=== PATIENT | female | born 1995 ===

== ENCOUNTER 2019-02-05 06:49 | Emergency (ER) | payer OTHER ==
[~2019-02-05] VITALS: Ht 165.1 cm; Wt 79.8 kg
[2019-02-05] MEDS ORDERED: PRENATAL 19 TA1 EACH (07:26)
[2019-02-05] MEDS ORDERED: SYNTHROID50 MCG (07:26)
[2019-02-05] MEDS ORDERED: DUI500 PO (11:55)
[2019-02-05] MEDS ORDERED: MUCINEX DM ER1 EAC1 PO (11:55)
== END 2019-02-05 12:09 | disposition home or self-care (01) ==
LOC: ER 06:49
DX: N39.0 Urinary tract infection, site not specified (principal); J06.9 Acute upper respiratory infection, unspecified; B34.9 Viral infection, unspecified

== ENCOUNTER 2019-03-28 14:10 | Outpatient (CLI) | payer OTHER ==
[~2019-03-28 14:10] MED LIST: DUI500 PO; MUCINEX DM ER1 EAC1 PO; PRENATAL 19 TA1 EACH; SYNTHROID50 MCG
== END 2019-03-28 21:48 | disposition home or self-care (01) ==
LOC: OBS/DEL 14:10
DX: O26.893 Other specified pregnancy related conditions, third trimester (principal); R10.2 Pelvic and perineal pain; Z34.03 Encounter for supervision of normal first pregnancy, third trimester

== ENCOUNTER 2019-04-09 17:21 | Outpatient (CLI) | payer OTHER | END 2019-04-09 18:23 | disposition home or self-care (01) | LOC: OBS/DEL 17:21 | DX: O23.43 Unspecified infection of urinary tract in pregnancy, third trimester (principal); Z34.03 Encounter for supervision of normal first pregnancy, third trimester ==

== ENCOUNTER 2019-05-21 11:10 | Outpatient (CLI) | payer OTHER | END 2019-05-21 20:55 | disposition home or self-care (01) | LOC: OBS/DEL 11:10 | DX: O13.3 Gestational [pregnancy-induced] hypertension without significant proteinuria, third trimester (principal); Z34.03 Encounter for supervision of normal first pregnancy, third trimester ==

== ENCOUNTER 2019-05-22 15:30 | Inpatient (IN) | payer OTHER ==
[~2019-05-22] VITALS: Ht 167.6 cm; Wt 87.1 kg
[2019-05-27] MEDS ORDERED: LEVOTHYROXINE25 MCG PO (12:05)
[2019-05-27] MEDS ORDERED: PRENATAL TABLE1 EACH PO (12:06)
[2019-06-04] MEDS ORDERED: PRENATAL CAPLE1 EAC1 PO (08:54)
== END 2019-06-07 14:20 | DRG 788 ==
LOC: O/R 15:30 → OB/GYN 06-04 07:29 → LDR 06-04 07:29 → OB/GYN 06-04 19:53
PROVIDERS: ADMIT Obstetrics & Gynecology
PROC: 3E033VJ Introduction of Other Hormone into Peripheral Vein, Percutaneous Approach (ICD-10-PCS; 2019-06-04)
PROC: 4A033R1 Measurement of Arterial Saturation, Peripheral, Percutaneous Approach (ICD-10-PCS; 2019-06-04)
PROC: 4A1HXCZ Monitoring of Products of Conception, Cardiac Rate, External Approach (ICD-10-PCS; 2019-06-04)
PROC: 10D00Z1 Extraction of Products of Conception, Low, Open Approach (ICD-10-PCS; principal; 2019-06-04 17:00)
DX: O61.0 Failed medical induction of labor (principal); O62.1 Secondary uterine inertia; Z3A.39 39 weeks gestation of pregnancy; Z37.0 Single live birth

== ENCOUNTER 2019-05-27 11:51 | Outpatient (CLI) | payer OTHER ==
[2019-05-27] MEDS ORDERED: LEVOTHYROXINE25 MCG PO (12:05)
[2019-05-27] MEDS ORDERED: PRENATAL TABLE1 EACH PO (12:06)
== END 2019-05-28 12:59 | disposition home or self-care (01) ==
LOC: OBS/DEL 11:51
DX: O26.843 Uterine size-date discrepancy, third trimester (principal); O13.3 Gestational [pregnancy-induced] hypertension without significant proteinuria, third trimester